=== PATIENT | male | born 1965 | race Caucasian/White ===

== ENCOUNTER 2024-04-11 09:38 | Emergency (ER) | payer OTHER, SELFPAY ==
--- NOTE | ~2024-04-11 | XR_ITS ---
EXAMINATION: XR chest 2V DATE: 04/11/2024 10:05 INDICATION: Cough. TECHNIQUE: Frontal and lateral views of the chest were obtained. COMPARISON: None. FINDINGS: There is no pneumonia, pleural effusion, or pneumothorax. The heart size is normal. IMPRESSION: 1. No acute cardiopulmonary disease. Reviewed, dictated and finalized at location A. [employer]
[2024-04-11 09:46] VITALS: BP 132/87; PULSE 84; RESP 20; TEMP 37.1; O2SAT 99
--- NOTE | 2024-04-11 10:10 | ED.URI ---
HPI - URI/Sore Throat General Chief Complaint: Upper Respiratory Infection Stated Complaint: Chest Congestion/Sinus Congestion/Cough History of Present Illness HPI Narrative: Patient presents with cough nasal congestion and runny nose for the past 3-4 days. Patient is worried about pneumonia states his grandchildren were does state treated for pneumonia. No shortness of breath no chest pain. Patient is taking DayQuil NyQuil [id number] for her symptoms. Related Data Home Medications ?Medication ?Instructions ?Recorded ?Confirmed ?Last Taken ?Type amlodipine 5 mg tablet 5 mg PO DAILY 04/11/24 Unknown History buspirone 5 mg tablet 5 mg PO BID 04/11/24 Unknown History fenofibrate 160 mg tablet mg 04/11/24 Unknown History Allergies Allergy/AdvReac Type Severity Reaction Status Date / Time No Known Allergies Allergy Verified 04/11/24 10:00 Review of Systems Review of Systems: CONSTITUTIONAL: Denies chills, or sweats. Reports fever and generalized body aches EYES: Denies visual changes, redness, or discharge. ENT: Denies otalgia. Reports nasal congestion runny nose and sore throat CARDIOVASCULAR: Denies chest pain, palpitations, or edema. RESPIRATORY: Denies dyspnea. Reports occasional cough GASTROINTESTINAL: Denies abdominal pain, nausea, vomiting, or diarrhea. GENITOURINARY: Denies dysuria or hematuria. SKIN: Denies rash or itching. MUSCULOSKELETAL: Denies back pain, joint pain, or myalgia. Reports generalized body aches NEUROLOGIC: Denies headache, numbness, or weakness. PSYCHIATRIC: Denies anxiety or depression. PMFSH Comments At time of signature, agree with nursing past medical, surgical, social and family history. There is no relevant family history pertinent to the presenting complaint Exam Narrative: The patient is a well-developed, well-nourished in no acute distress. SKIN: Skin is warm and dry without erythema, swelling or exudate. There is good turgor. No tenting. HEAD: Atraumatic. Normocephalic. No temporal or scalp tenderness. EYES: Moist and bright. Sclera and conjunctivae normal. No discharge. PERRLA. Extraocular motions intact. Gross visual acuity intact. EARS: Pinna is normal shape and contour. Clear external auditory canals. TM pearly walker with good cone of light, no erythema or suppuration. Bilateral cerumen noted no gross hearing deficit. NOSE: pink, moist mucosa with good air movement. Clear rhinorrhea without nasal flaring. Septum midline. Mouth: moist mucous membranes. THROAT; mild erythema noted to posterior oropharynx with moderate postnasal drainage. Without exudate or ulceration.. Uvula midline. Normal movement of soft palate. NECK: Supple and nontender with full range of motion without discomfort. No meningeal signs. LUNGS: Equal and bilateral breath sounds without wheezes, rales or rhonchi. CHEST: The chest wall is without retractions or use of accessory muscles. HEART: Has a regular rate and rhythm without murmur, gallops, click or rub. ABDOMEN: Soft, nontender with positive active bowel sounds. No rebound tenderness. EXTREMITIES: Without cyanosis, clubbing or edema. Equal 2+ distal pulses and 2 second capillary refill noted. NEUROLOGIC: alert, active, . The patient moves all extremities with normal muscle strength. Normal muscle tone is noted. Normal coordination is noted. NO focal neurological findings noted. Course Course Level of Care: Express Care Visit Vital Signs Vital signs: Vital Signs Temperature 37.1 C 04/11/24 09:46 Pulse Rate 84 04/11/24 09:46 Respiratory Rate 20 04/11/24 09:46 Blood Pressure 132/87 04/11/24 09:46 Pulse Oximetry 99 04/11/24 09:46 Oxygen Delivery Room Air 04/11/24 09:46 Temperature 37.1 C 04/11/24 09:46 Pulse Rate 84 04/11/24 09:46 Respiratory Rate 20 04/11/24 09:46 Blood Pressure 132/87 04/11/24 09:46 Pulse Oximetry 99 04/11/24 09:46 Oxygen Delivery Room Air 04/11/24 09:46 Please SHANELLE schedule a followup visit with your personal physician for further evaluation and treatment. Including recheck and discussion of your blood pressure. If your symptoms persist, change or worsen significantly before you can contact your personal physician then please, without delay, go to the emergency department for further evaluation MDM - URI/Sore Throat Imaging Data Radiologist's impression: No acute cardiopulmonary disease Discharge Plan Discharge Clinical Impression: Upper respiratory infection, Bronchitis Patient Disposition: Home, Self-Care Condition: Stable Additional Instructions: *Throw away your current toothbrush and begin using a new toothbrush in 48 hours in order to prevent re-infection. If anyone else's toothbrush is stored near yours, they should also throw away their current toothbrush and begin using a new one. *Sanitize all reusable water bottles. *Do not share items with others. *Wash your hands often. Supportive care/Soothing measures/Pain relief: *Avoid cigarette smoke (including secondhand smoke) *Avoid acidic foods and beverages *Eat a soft diet for the next 3-4 days *Salt water gargles may alleviate some of the throat discomfort. Most recipes call for ? to ? teaspoon of salt per 8 ounces (approximately 240 mL) of warm water. *You can take tylenol or ibuprofen per the package instructions for pain/fever. *Sipping cold or warm beverages (eg, tea with honey or lemon) *Eat cold or frozen desserts (eg, ice cream, popsicles) *Sucking on ice *Sucking on hard candy Viruses are everywhere and can spread like wildfire. Sx can last up to 3-4 weeks. Treatment is aimed toward your specific symptoms. You must treat your symptoms in order to feel better while the virus runs it's course. Increase fluids especially water. Do not share items with others. You can take Tylenol or ibuprofen per the package instructions for pain/fever. Wash your hands as often as possible. Purchase and begin using an over the counter antihistamine/decongestant combo such as Zyrtec D, Monica D, Claritin D as well as Flonase nasal spray per the package instructions. Salt water gargles may alleviate some of your throat discomfort. Go to the ER if your symptoms become worse of if ANY new symptoms develop Patient Language: Spanish Prescriptions: New fluticasone propionate [Flonase Allergy Relief] 50 mcg/actuation spray,suspension 2 spray NASAL BID Qty: 9.9 0RF Rx Instructions: administer into each nostril cetirizine [Zyrtec] 10 mg tablet 10 mg PO DAILY Qty: 30 0RF No Action amlodipine 5 mg tablet 5 mg PO DAILY buspirone 5 mg tablet 5 mg PO BID fenofibrate 160 mg tablet Follow-up/Referrals: Cholo,MIGUEL ANGEL Francis [Primary Care Provider] -
--- OUTSIDE RECORDS SUMMARY | 2024-04-18 08:33 | XMS_ITS | Encounter Summary ---
Author Organization [facility] Healthcare Address [address] [place] [address] Care Team Providers Care Echocardiography Radiology Technologist Name Role Phone Carlos Emmanuel Primary Care Provider [phone] Reason for Visit * Reason Comments Irregular Heart Beat Encounter Details Date Type Department Care Team (Late st Contact Info) Description 03/11/2024 10:59 PM GAS DERRICK OPERATOR - 03/12/2024 1:21 AM GAS DERRICK OPERATOR Emergency [facility] Emergency Department [address] [place] [address] Luiz Yeh MD [address] [place] [address] PVC's (premature ventricular contractions) (Primary Dx) Discharge Disposition: Discharge to home or self care Social History Tobacco Use Types Packs/Day Years Used Date Smoking Tobacco: Never Alcohol Use Standard Drinks/Week Comments Yes 0 (1 standard drink = 0.6 oz pur e alcohol) Personal Safety Answer Date Recorded Have you ever been in or are you currently in a harmful physical or emotional relationship or is someone making you feel afraid or unsafe? Denies 03/11/2024 Sex and Gender Information Value Date Recorded Sex Assigned at Not on file Legal Sex Male 2:29 AM GAS DERRICK OPERATOR Gender Identity Not on file Sexual Orientation Not on file documented as of this encounter Last Filed Vital Signs Vital Sign Reading Time Taken Comments Blood Pressure 134/87 03/12/2024 1:00 AM GAS DERRICK OPERATOR Pulse 72 03/12/2024 1:09 AM GAS DERRICK OPERATOR Temperature 36.8 ??C (98.2 ??F) 03/11/2024 11:[address] Respiratory Rate 14 03/12/2024 1:09 AM GAS DERRICK OPERATOR Oxygen Saturation 93% 03/12/2024 1:09 AM GAS DERRICK OPERATOR Inhaled Oxygen Concentration - - Weight 95.3 kg (210 lb) 03/11/2024 11:01 PM GAS DERRICK OPERATOR Height 175.3 cm (5' 9 ) 03/11/2024 11:01 PM GAS DERRICK OPERATOR Body Mass Index 31.01 03/11/2024 11:01 PM GAS DERRICK OPERATOR documented in this encounter Discharge Instructions * Discharge Instructions* Kushal Lu, [place] - 03/12/2024 1:06 AM GAS DERRICK OPERATOR Drink plenty of fluids. Avoid caffeine. Follow up with Dr. Medel and your primary care doctor. DERRICK OPERATOR DERRICK OPERATOR * Attachments The following attachments cannot be sent through Care Everywhere. * Premature Ventricular Contractions (Discharge Care) ([place]) documented in this encounter Medications at Time of Discharge amLODIPine (NORVASC) 5 mg tablet Take 1 tablet (5 mg total) by mouth daily 02/09/2024 busPIRone (BUSPAR) 5 mg tabletIndications :Generalized Anxiety Disorder Take 1 tablet (5 mg total) by mouth 2 (two) times a day ezetimibe (ZETIA) 10 mg tablet Take 1 tablet (10 mg total) by mouth daily 02/07/2024 fenofibrate (TRIGLIDE) 160 mg tablet Take 1 tablet (160 mg total) by mouth daily 02/09/2024 lisinopriL (PRINIVIL,ZESTRIL ) 20 mg tablet Take 1 tablet (20 mg total) by mouth daily 02/06/2024 naproxen (NAPROSYN) 500 mg tablet Take 1 tablet (500 mg total) by mouth 2 (two) times a day with meals. 20 tablet 03/09/2018 documented as of this encounter Discharge Disposition Disposition Code Departure Means Destination Comment s Discharge to home or self care documented in this encounter Consult Notes * Madeleine Moulton MD - 03/11/2024 11:30 PM CST Images from the original note were not included. [facility] Telestroke Consultation Note Patient Name: Brian Salazar Date of : 1965 Date of Service: 03/11/2024 Telestroke Documentation Consult Start Time: 2322 Name of Requesting Provider: Rao Video Used? : No Imaging Reviewed?: Yes Total Time Spent Coordinating Patient Care: 20 minutes (03/11/242328) Subjective HPI: Patient is a 59 y.o. male with HTN and HL presenting with palpitations, SOB, chest pain, and left cheek and bilateral hand (left>right) numbness. Last known well Date Last Known Well : 03/11/24 Time Last Known Well: 2244 (03/11/242316) PMH/Vascular Risk Factors: Hyperlipidemia and Hypertension (Not in a hospital admission) Current Facility-Administered Medications Medication Dose Route Frequency Provider Last Rate Last Admin aspirin chewable tablet 324 mg 324 mg oral Once Luiz Yeh MD Current Outpatient Medications Medication Sig Dispense Refill amLODIPine (NORVASC) 5 mg tablet Take 1 tablet (5 mg total) by mouth daily ezetimibe (ZETIA) 10 mg tablet Take 1 tablet (10 mg total) by mouth daily fenofibrate (TRIGLIDE) 160 mg tablet Take 1 tablet (160 mg total) by mouth daily lisinopriL (PRINIVIL,ZESTRIL) 20 mg tablet Take 1 tablet (20 mg total) by mouth daily busPIRone (BUSPAR) 5 mg tablet Take 1 tablet (5 mg total) by mouth 2 (two) times a day naproxen (NAPROSYN) 500 mg tablet Take 1 tablet (500 mg total) by mouth 2 (two) times a day with meals. 20 tablet 0 Objective Vitals: Patient Vital Signs for the past 24 hrs: BP Temp Temp src Pulse Resp SpO2 Height Weight 03/11/24 2304 161/99 36.8 ??C (98.2 ??F) Temporal 76 18 97 % -- -- 03/11/241 -- -- -- -- -- -- 175.3 cm (5' 9 ) 95.3 kg (210 lb) NIHSS: NIH Stroke Scale Interval: Baseline Level of Consciousness (1a.): Alert, keenly responsive LOC Questions (1b.): Answers both questions correctly LOC Commands (1c.): Performs both tasks correctly Best Gaze (2.): Normal Visual (3.): No visual loss Facial Palsy (4.): Normal symmetrical movements Motor Arm, Left (5a.): No drift Motor Arm, Right (5b.): No drift Motor Leg, Left (6a.): No drift Motor Leg, Right (6b.): No drift Limb Ataxia (7.): Absent Sensory (8.): Normal, no sensory loss Best Language (9.): No aphasia Dysarthria (10.): Normal Extinction and Inattention (11.) (Formerly Neglect): No abnormality Total: 0 (03/11/247) Other exam findings: Imaging Interpretation: Head CT shows no acute changes CT Head preliminary read for lytic treatment (Read to Treat)? N/A Labs: No results found for: GLUCOSE , PT , INR Hematology Lab History Latest Ref Rng & Units 03/11/2024 23:11 Labs - Hematology WBC 3.8 - 9.9 K/cumm 8.7 Total Hb, POC 13.0 - 17.5 g/dL 14.5 Hct 38.9 - 50.3 % 42.4 Plt 150 - 400 K/cumm 450 Neutrophil abs 1.5 - 6.5 K/cumm 4.0 Lymphocytes, abs 0.8 - 3.3 K/cumm 3.6 Other notable labs: Medical Decision Making: Recommendations Thrombolytic Recommended: No Patient was evaluated but ineligible for IV thrombolysis for the following reason(s): Unlikely acute stroke, more likely mimic, Mild, non-disabling stroke symptoms Thrombectomy Decision: No Thrombectomy Exclusion Criteria: Unlikely acute stroke, more likely mimic, NIHSS < 6 between 0-24 hours from last known normal (03/11/24 1200) Assessment/Plan: Mr. Salazar is a 59yo man with HTN, HL who comes in with palpitations, SOB, chest pain, and left cheek and left>right hand numbness. NIHSS 0. Head CT shows no acute changes. Suspect stroke mimic,but it would be reasonable to administer an aspirin and if symptoms persist and no other cause is found, obtain brain MRI. Total time spent coordinating care 20 minutes. Madeleine Moulton MD [employer] Telestroke Service For follow up questions please call the [facility] Transfer Center and ask to speak with the on-call physician for Telestroke DERRICK OPERATOR documented in this encounter ED Notes * Luiz Yeh MD - 03/11/2024 11:19 PM CST HPI Chief Complaint Patient presents with Irregular Heart Beat Patient started having palpitations 1.5 hours ago. Also having shortness of breath. He has been having some lower sternal chest pain and epigastric pain. He has had numbness to the left cheek for thelast 30 minutes. He feels disoriented. He has numbness to both hands, worse on the left. No nausea or vomiting. No headache. He is dizzy. Patient History: There are no active problems to display for this patient. Past Medical History: Diagnosis Date Hyperlipidemia Hypertension History reviewed. No pertinent surgical history. No family history on file. Social History Tobacco Use Smoking status: Never Smokeless tobacco: None Substance and Sexual Activity Alcohol use: Yes Drug use: No Sexual activity: None Social History Social History Narrative Not on file Review of Systems Review of Systems Constitutional: Negative for chills and fever. HENT: Negative for congestion, rhinorrhea and sore throat. Eyes: Negative for pain. Respiratory: Positive for shortness of breath. Negative for cough. Cardiovascular: Positive for chest pain and palpitations. Negative for leg swelling. Gastrointestinal: Negative for abdominal pain, diarrhea, nausea and vomiting. Genitourinary: Negative for difficulty urinating. Musculoskeletal: Negative for myalgias. Skin: Negative for rash. Neurological: Positive for dizziness and numbness. Negative for headaches. Psychiatric/Behavioral: Negative for behavioral problems. Physical Exam ED Triage Vitals Temp Pulse Resp BP SpO2 03/11/24230303/11/24230303/11/24230303/11/24230303/11/242303 36.8 ??C (98.2 ??F) 76 18 161/99 97 % Temp src Heart Rate Source Patient Position BP Location FiO2 (%) 03/11/242303 -- -- -- -- Temporal Height Height Method Weight Weight Method 03/11/24230003/11/24 23003/11/24 23003/11/242300 1.753 m (5' 9 ) Stated 95.3 kg (210 lb) Stated Physical Exam Constitutional: Appearance: He is well-developed. HENT: Head: Normocephalic and atraumatic. Nose: Nose normal. Eyes: Pupils: Pupils are equal, round, and reactive to light. Cardiovascular: Rate and Rhythm: Normal rate and regular rhythm. Heart sounds: Normal heart sounds. Pulmonary: Effort: Pulmonary effort is normal. Breath sounds: Normal breath sounds. Abdominal: General: Bowel sounds are normal. Palpations: Abdomen is soft. Musculoskeletal: General: Normal range of motion. Cervical back: Normal range of motion. Skin: General: Skin is warm and dry. Neurological: General: No focal deficit present. Mental Status: He is alert and oriented to person, place, and time. Sensory: No sensory deficit. Motor: No weakness. Labs Reviewed CBC WITH AUTO DIFFERENTIAL - Abnormal Result Value WBC 8.7 Hgb 14.5 Hct 42.4 Plt 450 (*) MPV 9.8 RBC 4.59 MCV 92.4 MCH 31.6 MCHC 34.2 RDW CV 12.2 RDW SD 41.4 NRBC abs 0.00 COMPREHENSIVE METABOLIC PANEL - Abnormal Sodium 137 Potassium, pl 3.7 Chloride 99 CO2 28 Anion gap 10 BUN 16 Creatinine 1.06 Glucose 113 Calcium 10.6 (*) Bilirubin, total 0.3 Protein, pl 7.8 Albumin 4.7 Alk phos 48 ALT 32 AST 22 DIFFERENTIAL AUTO - Abnormal Neutrophil abs 4.0 Imm gran abs 0.0 Lymphocyte abs 3.6 (*) Monocyte abs 0.9 (*) Eosinophil abs 0.1 Basophil abs 0.0 Neutrophil pct 46.2 Imm gran pct 0.2 Lymphocyte pct 40.9 Monocyte pct 10.8 Eosinophil pct 1.6 Basophil pct 0.3 TSH - Abnormal Thyroid Stimulating Hormone 5.03 (*) TROPONIN T HIGH-SENSITIVITY SERIES (BASELINE, 2HR, 4HR, 6HR) Trop T hs <6 LIPASE Lipase 29 MAGNESIUM Magnesium 2.0 LIPASE Lipase 30 D-DIMER, QUANTITATIVE D-Dimer <215 EGFR eGFR 82 TROPONIN T HIGH-SENSITIVITY 2-HOUR TROPONIN T HIGH-SENSITIVITY 4-HR TROPONIN T HIGH-SENSITIVITY 6-HOUR POCT GLUCOSE DEVICE Glucose, POC 106 XR Chest 1 Vw Portable (if patient condition/safety warrant portable) Final Result CT Stroke Head WO Contrast Final Result MDM NIH Score Interval: Other (Comment) Level of Consciousness (1a.): 0 LOC Questions (1b.): 0 LOC Commands (1c.): 0 Best Gaze (2.): 0 Visual (3.): 0 Facial Palsy (4.): 0 Motor Arm, Left (5a.): 0 Motor Arm, Right (5b.): 0 Motor Leg, Left (6a.): 0 Motor Leg, Right (6b.): 0 Limb Ataxia (7.): 0 Sensory (8.): 0 Best Language (9.): 0 Dysarthria (10.): 0 Extinction and Inattention (11.) (Formerly Neglect): 0 Total: 0 Medical Decision Making Patient presents with palpitations. Also having some numbness to the left face, both hands. Amount and/or Complexity of Data Reviewed Labs: ordered. Details: TSH 5.03. Calcium 10.6 Radiology: ordered. Details: Chest x-ray: Negative CT head: Negative ECG/medicine tests: ordered and independent interpretation performed. Details: EKG: Sinus rhythm, rate 87, PVC, nonspecific T-wave changes Discussion of management or test interpretation with external provider(s): Differential diagnosis: PVCs, stroke, TIA, cardiac. Patient had PVCs on the monitor. Cardiac workup negative. D-dimer negative. CT negative for stroke. Discussed with Dr. Moulton. Likely stroke mimic. Recommend aspirin. Follow up with Cardiology for event monitor. I did tell the patient to take a baby aspirin daily. Risk OTC drugs. ED Course as of 03/12/24 0133 Time: 03/11 6377 Comment: Dr. Moulton. No tPA. No CTA. By: Luiz Yeh MD Time: 03/12 131 Comment: Numbness is improved. By: Luiz Yeh MD Final diagnoses: PVC's (premature ventricular contractions) Luiz Yeh MD 03/12/24133 DERRICK OPERATOR * Cassidy Watkins RN - 03/11/2024 10:59 PM CST Pt c/o irregular heart beat x 1hr with SOB and pain to epigastric area. DERRICK OPERATOR documented in this encounter Miscellaneous Notes * ED Procedure Note - Luiz Yeh MD - 03/11/2024 11:23 PM CSTAssociated Order(s): ECG 12 lead Procedure ECG 12 lead Date/Time: 03/11/2024 11:23 PM Performed by: Luiz Yeh MD Authorized by: Luiz Yeh MD Rate: ECG rate: 87 ECG rate assessment: normal Rhythm: Rhythm: sinus rhythm Ectopy: Ectopy: PVCs T waves: T waves: non-specific Interpretation: Interpretation: abnormal Luiz Yeh MD 03/11/242322 DERRICK OPERATOR documented in this encounter Plan of Treatment Not on file documented as of this encounter Procedures Procedure Name Priority Date/Time Associated Diagnosis Comments XR CHEST 1 VIEW ED 03/11/2024 11:45 PM GAS DERRICK OPERATOR CT STROKE PROTOCOL WO CONTRAST Critical/Life-T hreatening 03/11/2024 11:26 PM GAS DERRICK OPERATOR POCT GLUCOSE DEVICE Routine 03/11/2024 1 1:19 PM GAS DERRICK OPERATOR TROPONIN T HIGH-SENSITIVITY SERIES (BASELINE, 2HR, 4HR, 6HR) STAT 03/11/2024 11:11 PM GAS DERRICK OPERATOR EGFR STAT 03/11/2024 11:11 PM GAS DERRICK OPERATOR DIFFERENTIAL AUTO STAT 03/11/2024 11: 11 PM GAS DERRICK OPERATOR CBC WITH AUTO DIFFERENTIAL STAT 03/11/2024 11:11 PM GAS DERRICK OPERATOR D-DIMER, QUANTITATIVE STAT 03/11/2024 11:11 PM GAS DERRICK OPERATOR TSH STAT 03/11/2024 11:11 PM GAS DERRICK OPERATOR MAGNESIUM Routine 03/11/2024 11:11 PM GAS DERRICK OPERATOR LIPASE STAT 03/11/2024 11:11 PM GAS DERRICK OPERATOR LIPASE STAT 03/11/2024 11:11 PM GAS DERRICK OPERATOR COMPREHENSIVE METABOLIC PANEL STAT 03/11/2024 11:11 PM GAS DERRICK OPERATOR ECG 12-LEAD STAT 03/11/2024 10:58 PM GAS DERRICK OPERATOR documented in this encounter Results * XR Chest 1 Vw Portable (if patient condition/safety warrant portable) (03/11/2024 11:45 PM GAS DERRICK OPERATOR) Anatomical Region Laterality Modality Body, Chest N/A Computed Radiogr aphy 03/11/2024 11:5 1 PM GAS DERRICK OPERATOR Narrative 03/11/2024 11:51 PM GAS DERRICK OPERATOR EXAM DESCRIPTION: XR CHEST 1 VIEW REASON FOR STUDY: chest pain ?? Pt c/o irregular heart beat x 1hr with SOB and pain to epigastric area. ?? Non smoker ??No surgery ??Hx of HTN ?? TECHNIQUE: ??Portable upright AP view of the chest. COMPARISON: None FINDINGS: LUNGS AND PLEURA: ??No focal opacity, large effusion, or pneumothorax identified. HEART/MEDIASTINUM: ??Trachea midline. ?? Cardiac silhouette normal in size. Mediastinal contours appear normal. BONES: ??Unremarkable. ?? CHEST WALL: ??Unremarkable. ?? UPPER ABDOMEN: ??Unremarkable. ?? IMPRESSION: No acute abnormality identified. ?? THIS IS AN ELECTRONICALLY VERIFIED FINAL REPORT 03/11/2024 11:51 PM - Electronically signed by ??Jose M Corona M.D. [place]: ROBE D: ??03/11/2024 11:51 PM T: ??03/11/2024 11:51 PM Report ID: [id number] Reading Location: ??[id number] Procedure Note Jose M Corona MD - 03/11/2024 EXAM DESCRIPTION: XR CHEST 1 VIEW REASON FOR STUDY: chest pain Pt c/o irregular heart beat x 1hr with SOB and pain to epigastric area.Non smoker No surgery Hx of HTN TECHNIQUE: Portable upright AP view of the chest. COMPARISON: None FINDINGS: LUNGS AND PLEURA: No focal opacity, large effusion, or pneumothorax identified. HEART/MEDIASTINUM: Trachea midline. Cardiac silhouette normal in size. Mediastinal contours appear normal. BONES: Unremarkable. CHEST WALL: Unremarkable. UPPER ABDOMEN: Unremarkable. IMPRESSION: No acute abnormality identified. THIS IS AN ELECTRONICALLY VERIFIED FINAL REPORT 03/11/2024 11:51 PM - Electronically signed by Jose M Corona M.D. [place]: ROBE Report ID: [id number] Reading Location: [id number] Luiz Yeh MD IMG XR PROCEDURES Final Resu lt * CT Stroke Head WO Contrast (03/11/2024 11:26 PM GAS DERRICK OPERATOR) Anatomical Region Laterality Modality Head N/A Computed Tomogra phy 03/11/2024 11:2 9 PM GAS DERRICK OPERATOR Narrative 03/11/2024 11:35 PM GAS DERRICK OPERATOR EXAM DESCRIPTION: CT STROKE HEAD WO CONTRAST REASON FOR STUDY: Palpitations 1.5 hours ago. Also having shortness of breath. He has been having some lower sternal chest pain and epigastric pain. He has had numbness to the left cheek for the last 30 minutes. He feels disoriented. He has numbness to both hands, worse ?? on the left. No nausea or vomiting. No headache. He is dizzy. ? TECHNIQUE: Axial images acquired through the brain without intravenous contrast. ??Images stored on PACS. ?? Automated exposure control was used as a dose optimization technique for this examination. COMPARISON: None FINDINGS: BRAIN: ??No mass, hemorrhage, or recent infarct. ?? Normal white matter. ?? Volume within normal limits for age. VASCULAR: ??No dense vessel or obvious aneurysm. EXTRA-AXIAL SPACES: ??No mass or fluid collection. ORBITS/GLOBES: Unremarkable. SOFT TISSUES: ??Unremarkable. ?? BONES/SINUSES: ??No fracture or lesion. ?? Paranasal sinuses and other skullbase airspaces are clear. IMPRESSION: No acute abnormality identified. ??Negative findings called. ?? THIS IS AN ELECTRONICALLY VERIFIED FINAL REPORT 03/11/2024 11:35 PM - Electronically signed by ??Jose M Corona M.D. [place]: ROBE D: ??03/11/2024 11:35 PM T: ??03/11/2024 11:35 PM Report ID: [id number] Reading Location: ??[id number] Procedure Note Jose M Corona MD - 03/11/2024 EXAM DESCRIPTION: CT STROKE HEAD WO CONTRAST REASON FOR STUDY: Palpitations 1.5 hours ago. Also having shortness ofbreath. He has been having some lower sternal chest pain and epigastric pain. Hehas had numbness to the left cheek for the last 30 minutes. He feelsdisoriented. He has numbness to both hands, worse on the left. No nausea or vomiting.No headache. He is dizzy. TECHNIQUE: Axial images acquired through the brain without intravenous contrast. Images stored on PACS. Automated exposure control was used asa dose optimization technique for this examination. COMPARISON: None FINDINGS: BRAIN: No mass, hemorrhage, or recent infarct. Normal white matter. Volume within normal limits for age. VASCULAR: No dense vessel or obvious aneurysm. EXTRA-AXIAL SPACES: No mass or fluid collection. ORBITS/GLOBES: Unremarkable. SOFT TISSUES: Unremarkable. BONES/SINUSES: No fracture or lesion. Paranasal sinuses and otherskullbase airspaces are clear. IMPRESSION: No acute abnormality identified. Negative findings called. THIS IS AN ELECTRONICALLY VERIFIED FINAL REPORT 03/11/2024 11:35 PM - Electronically signed by Jose M Corona M.D. [place]: ROBE Report ID: [id number] Reading Location: [id number] Luiz Yeh MD IMG CT PROCEDURES Final Resu lt * POCT glucose (03/11/2024 11:19 PM GAS DERRICK OPERATOR) Glucose, POC 106 70 - 199 mg/dL Blood 03/11/2024 11:1 9 PM GAS DERRICK OPERATOR 03/11/2024 11:19 PM GAS DERRICK OPERATOR us Luiz Yeh MD LAB POCT ORDERABLES - DEVICE Final Result [facility] ([place]) 1 [facility] Department [place] [address] * eGFR (03/11/2024 11:11 PM GAS DERRICK OPERATOR) eGFR 82 >=60 mL/min/1. 73 m2 Comment: Interpretive Data Reference Interval Normal ?>/= 90 mL/min/1.73m2 Mildly decreased* ? 60 - 89 mL/min/1.73m2 Mildly to moderately decreased ?45 - 59 mL/min/1.73m2 Moderately to severely decreased ??30 - 44 mL/min/1.73m2 Severely decreased ?15 - 29 mL/min/1.73m2 Kidney Failure ?< 15 ??mL/min/1.73m2 *Relative to young adult level Estimated glomerular filtration rate is determined by the 2020 CKD-EPI equation recommended by the National Kidney Foundation (A Unifying Approach to GFR Estimation: Recommendations of the NKF-ASK Task Force on Reassessing the Inclusion of Race in Diagnosing Kidney Disease, JASN 2020). The CKD-EPI equation should not be used for patients with unstable renal function and has not been validated in children and those over 70. Current interpretive data was last reviewed 2021. Blood 03/11/2024 11:1 1 PM GAS DERRICK OPERATOR 03/11/2024 11:13 PM GAS DERRICK OPERATOR Luiz Yeh MD LAB BLOOD ORDERABLES Final R esult Performing Organization Address [facility] Co de Phone Number [facility] ([place]) [address] [place] [address] [employer] [place] [address] * D-dimer, quantitative (03/11/2024 11:11 PM GAS DERRICK OPERATOR) D-Dimer <215 <=499 ng/mL FEU [facility] ([place]) Comment: Interpretive data FDA approved the D-dimer, in conjunction with a low or moderate pretest probability score, to exclude venous thromboembolic events (VTE) (PE and DVT) in outpatients when the D-dimer result is < 500 ng/ml FEU. ?? Evidence supports using an age-adjusted D-dimer cut-off for outpatients older than 50 (age x 10) to improve specificity without sacrificing sensitivity. Example: age 68, VTE cut-off 680 ng/ml FEU. References; Marissa HT et al. Brit Med J. 2013;346:f2492. Min et al. Annals Int Med. 2015;163:701-11. Current interpretive data was last revised on 2019. Blood 03/11/2024 11:1 1 PM GAS DERRICK OPERATOR 03/11/2024 11:27 PM GAS DERRICK OPERATOR Luiz Yeh MD LAB BLOOD ORDERABLES Final R esult Performing Organization Address [facility] Co de Phone Number [facility] ([place]) 1 [facility] [place] [address] * (ABNORMAL) TSH (03/11/2024 11:11 PM GAS DERRICK OPERATOR) Thyroid Stimulating Hormone 5.03(H) 0.30 - 4.20 mcIUnit/mL Blood 03/11/2024 11:1 1 PM GAS DERRICK OPERATOR 03/11/2024 11:27 PM GAS DERRICK OPERATOR Luiz Yeh MD LAB BLOOD ORDERABLES Final R esult Performing Organization Address [facility] Co de Phone Number [facility] ([place]) [address] [facility] [place] [address] * Lipase (03/11/2024 11:11 PM GAS DERRICK OPERATOR) Lipase 30 10 - 99 Units/L Blood 03/11/2024 11:1 1 PM GAS DERRICK OPERATOR 03/11/2024 11:27 PM GAS DERRICK OPERATOR Luiz Yeh MD LAB BLOOD ORDERABLES Final R esult Performing Organization Address [facility] de Phone Number [facility] ([place]) [address] [facility] [place] [address] * Magnesium (03/11/2024 11:11 PM GAS DERRICK OPERATOR) Magnesium 2.0 1.4 - 2.5 mg/dL Blood 03/11/2024 11:1 1 PM GAS DERRICK OPERATOR 03/11/2024 11:27 PM GAS DERRICK OPERATOR Luiz Yeh MD LAB BLOOD ORDERABLES Final R esult Performing Organization Address [facility] de Phone Number [facility] ([place]) [address] [facility] [place] [place] [address] * (ABNORMAL) Differential, auto (03/11/2024 11:11 PM GAS DERRICK OPERATOR) Neutrophil abs 4.0 1.5 - 6.5 K/cumm Imm gran abs 0.0 0.0 - 0.1 K/cumm [facility] ([place]) Lymphocyte abs 3.6(H) 0.8 - 3.3 K/cumm [facility] ([place]) Monocyte abs 0.9(H) 0.2 - 0.8 K/cumm [facility] ([place]) Eosinophil abs 0.1 0.0 - 0.5 K/cumm [facility] ([place]) Basophil abs 0.0 0.0 - 0.1 K/cumm [facility] ([place]) Neutrophil pct 46.2 % [facility] ([place]) Comment: Interpretive Data Percent cell count reference ranges are not reported, since discordance with absolute values may lead to misinterpretation of CBC data. Current Interpretive Data was last revised on 2017. Imm gran pct 0.2 % [facility] ([place]) Comment: Interpretive Data Percent cell count reference ranges are not reported, since discordance with absolute values may lead to misinterpretation of CBC data. Current Interpretive Data was last revised on 2017. Lymphocyte pct 40.9 % [facility] ([place]) Comment: Interpretive Data Percent cell count reference ranges are not reported, since discordance with absolute values may lead to misinterpretation of CBC data. Current Interpretive Data was last revised on 2017. Monocyte pct 10.8 % [facility] ([place]) Comment: Interpretive Data Percent cell count reference ranges are not reported, since discordance with absolute values may lead to misinterpretation of CBC data. Current Interpretive Data was last revised on 2017. Eosinophil pct 1.6 % [facility] ([place]) Comment: Interpretive Data Percent cell count reference ranges are not reported, since discordance with absolute values may lead to misinterpretation of CBC data. Current Interpretive Data was last revised on 2017. Basophil pct 0.3 % [facility] ([place]) Comment: Interpretive Data Percent cell count reference ranges are not reported, since discordance with absolute values may lead to misinterpretation of CBC data. Current Interpretive Data was last revised on 2017. Blood 03/11/2024 11:1 1 PM GAS DERRICK OPERATOR 03/11/2024 11:13 PM GAS DERRICK OPERATOR us Luiz Yeh MD LAB BLOOD ORDERABLES Final R esult [facility] ([place]) 1 [facility] Department [place] [employer] [place] [address] * Lipase (03/11/2024 11:11 PM GAS DERRICK OPERATOR) [facility] Lipase 29 10 - 99 Units/L Blood 03/11/2024 11:1 1 PM GAS DERRICK OPERATOR 03/11/2024 11:13 PM GAS DERRICK OPERATOR Luiz Yeh MD LAB BLOOD ORDERABLES Final R esult Performing Organization Address City/[facility]/ZIP Co de Phone Number DONI [facility] ([place]) 1 [facility] [place] [address] * Troponin T high-sensitivity series (baseline, 2hr, 4hr, 6hr) (03/11/2024 11:11 PM GAS DERRICK OPERATOR) [facility] Trop T hs <6 <=22 ng/L Comment: Interpretive Data For further hscTnT resources including the diagnostic algorithm and an aid in interpretation, copy and paste this link: https://nrl.testcatalog.org/show/hsTrop Current Interpretive Data last revised 2020. Blood 03/11/2024 11:1 1 PM GAS DERRICK OPERATOR 03/11/2024 11:13 PM GAS DERRICK OPERATOR Luiz Yeh MD LAB BLOOD ORDERABLES Edited Result - Final Performing Organization Address [facility] Co de Phone Number DONI [facility] ([place]) 1 [place] [address] * (ABNORMAL) Comprehensive metabolic panel (03/11/2024 11:11 PM GAS DERRICK OPERATOR) [facility] Sodium 137 135 - 145 mmol/L Potassium, pl 3.7 3.3 - 4.9 mmol/L [facility] ([place]) Chloride 99 97 - 110 mmol/L [facility] ([place]) CO2 28 22 - 32 mmol/L [facility] [place] Anion gap 10 2 - 15 mmol/L [facility] ([place]) BUN 16 6 - 25 mg/dL [facility] ([place]) Creatinine 1.06 0.80 - 1.30 mg/dL [facility] ([place]) Glucose 113 70 - 199 mg/dL [facility] ([place]) Comment: Interpretive Data Fasting glucose >/= 126 mg/dl is diagnostic for diabetes. ?? Fasting is defined as no caloric intake for at least 8 hours. Fasting glucose between 100 mg/dl to 125 mg/dl is diagnostic of prediabetes. In a patient with classic symptoms of hyperglycemia or hyperglycemic crisis, a random glucose >/= 200 mg/dl is diagnostic for diabetes. In the absence of unequivocal hyperglycemia, results should be confirmed by repeat testing. The classification and Diagnosis of Diabetes Diabetes Care 2021; 46: S19-S40. Current interpretive data was last revised 2022. Calcium 10.6(H) 8.5 - 10.3 mg/dL [facility] ([place]) Bilirubin, total 0.3 0.1 - 1.2 mg/dL [facility] ([place]) Protein, pl 7.8 6.5 - 8.5 g/dL [facility] ([place]) Albumin 4.7 3.5 - 5.0 g/dL [facility] ([place]) Alk phos 48 40 - 130 Units/L [facility] ([place]) ALT 32 7 - 55 Units/L [facility] [place]) AST 22 10 - 50 Units/L [facility] [place]) Blood 03/11/2024 11:1 1 PM GAS DERRICK OPERATOR 03/11/2024 11:13 PM GAS DERRICK OPERATOR us Luiz Yeh MD LAB BLOOD ORDERABLES Final R esult [facility] ([place]) 1 [facility] Department [place] [address] * (ABNORMAL) CBC with auto differential (03/11/2024 11:11 PM GAS DERRICK OPERATOR) WBC 8.7 3.8 - 9.9 K/cumm Hgb 14.5 13.0 - 17.5 g/dL [facility] ([place]) Hct 42.4 38.9 - 50.3 % [facility] [place]) Plt 450(H) 150 - 400 K/cumm [facility] [place]) MPV 9.8 9.1 - 12.3 fL [facility] [place]) RBC 4.59 4.30 - 5.80 M/cumm [facility] ([place]) MCV 92.4 81.3 - 96.4 fL [facility] ([place]) MCH 31.6 27.1 - 33.3 pg [facility] ([place]) MCHC 34.2 32.3 - 35.7 g/dL [facility] ([place]) RDW CV 12.2 11.1 - 14.9 % [facility] [place]) RDW SD 41.4 35.7 - 48.1 fL [facility] ([place]) NRBC abs 0.00 0.00 - 0.01 K/cumm [facility] ([place]) Blood (Blood, Venous) 03/11/2024 11:11 PM GAS DERRICK OPERATOR 03/11/2024 11:13 PM GAS DERRICK OPERATOR Luiz Yeh MD LAB BLOOD ORDERABLES Final R esult Performing Organization Address City/[facility] Co de Phone Number [facility] ([place]) 1 [facility] Department [place] [address] * ECG 12 lead (03/11/2024 10:58 PM GAS DERRICK OPERATOR) 03/11/2024 10:5 8 PM GAS DERRICK OPERATOR Narrative [facility] Dibspace - 03/12/2024 8:25 AM GAS DERRICK OPERATOR Vent Rate: 87 bpm RR Interval: 682 msec HI Interval: 175 msec QRS Duration: 91 msec QT Interval: 367 msec QTC Interval: 412 msec P-R-T [place]: 35 - 72 - 22 degrees IMPRESSION: SINUS RHYTHM WITH FREQUENT VENTRICULAR PREMATURE COMPLEXES NONSPECIFIC T-WAVE ABNORMALITY ABNORMAL RHYTHM ECG Electronically Signed By: Barney Ya MD [facility] Luiz Yeh MD ECG ORDERABLES Final Result Performing Organization Address [facility] Co de Phone Number [facility] [employer] [facility] documented in this encounter Visit Diagnoses Diagnosis PVC's (premature ventricular contractions)- Primary Other premature beats documented in this encounter Administered Medications Inactive Administered Medications - up to 3 most recent administrations Medication Order MAR Action Action Date Dose Rate Site aspirin chewable tablet 324 mg 324 mg, oral, Once, On [place] 03/11/24 at 2306, For 1 dose, Indications: Chest PainIndications:Chest Pain Given 03/11/2024 11:50 PM GAS DERRICK OPERATOR 324 mg documented in this encounter Historical Medications * This list may reflect changes made after this encounter. busPIRone (BUSPAR) 5 mg tabletIndications :Generalized Anxiety Disorder Take 1 tablet (5 mg total) by mouth 2 (two) times a day lisinopriL (PRINIVIL,ZESTRIL ) 20 mg tablet Take 1 tablet (20 mg total) by mouth daily 02/06/2024 ezetimibe (ZETIA) 10 mg tablet Take 1 tablet (10 mg total) by mouth daily 02/07/2024 fenofibrate (TRIGLIDE) 160 mg tablet Take 1 tablet (160 mg total) by mouth daily 02/09/2024 amLODIPine (NORVASC) 5 mg tablet Take 1 tablet (5 mg total) by mouth daily 02/09/2024 added in this encounter Active and Recently Administered Medications Times are shown in GAS DERRICK OPERATOR. Scheduled Medication Order 03/10/2024 03/11/2024 03/12/2024 aspirin chewable tablet 324 mg (COMPLETED) 324 mg, oral, Once, On Olive 03/11/24 at 2306, For 1 dose, Indications: Chest Pain 2350 (Given - Provider: Camilo Lu RN) documented in this encounter Orders Nursing Count Last Ordered Date First Orde red Date CONTINUOUS PULSE OXIMETRY 1 03/11/2024 MISCELLANEOUS NURSING CARE ORDER (SPECIFY) 2 03/11/2024 IV Count Last Ordered Date First Orde red Date SALINE LOCK IV 1 03/11/2024 documented in this encounter Care Teams Echocardiography Radiology Technologist Relationship Specialty Start Date End Date Carlos Emmanuel PA [address] [place] [address] PCP - General 03/09/18 documented as of this encounter
--- OUTSIDE RECORDS SUMMARY | 2024-04-18 08:33 | XMS_ITS | Encounter Summary ---
Author Organization [facility] Address [address] [facility] [address] [place] [id number] Care Team Providers Care Payable Manager Name Role Phone Carlos Emmanuel Primary Care Provider Reason for Visit * Reason Comments Pain Encounter Details Date Type Department Care Team (Late st Contact Info) Description 03/18/2018 8:50 AM PEST CONTROL SPECIALIST Office Visit [facility] [address] [place] [address] Kj Campuzano MD [address] [address] Sprain of medial collateral ligament of left knee, initial encounter (Primary Dx) Social History Tobacco Use Types Packs/Day Years Used Date Smoking Tobacco: Never Alcohol Use Standard Drinks/Week Comments Yes 0 (1 standard drink = 0.6 oz pur e alcohol) Sex and Gender Information Value Date Recorded Sex Assigned at Not on file Legal Sex Male 2:29 AM PEST CONTROL SPECIALIST Gender Identity Not on file Sexual Orientation Not on file documented as of this encounter Last Filed Vital Signs Vital Sign Reading Time Taken Comments Blood Pressure 140/88 03/18/2018 9:19 AM PEST CONTROL SPECIALIST Pulse 76 03/18/2018 9:19 AM PEST CONTROL SPECIALIST Temperature - - Respiratory Rate - - Oxygen Saturation - - Inhaled Oxygen Concentration - - Weight 99.8 kg (220 lb) 03/18/2018 9:19 AM PEST CONTROL SPECIALIST Height 175.3 cm (5' 9 ) 03/18/2018 9:19 AM PEST CONTROL SPECIALIST Body Mass Index 32.49 03/18/2018 9:19 AM PEST CONTROL SPECIALIST documented in this encounter Progress Notes * Kj Campuzano MD - 03/18/2018 8:50 AM CST This 53-year-old male returns today for evaluation of left knee pain. He was injured in the work place on 03/06/2018 when his foot slipped and he struck it doorjamb. He complains of medial joint linepain and initially had some popping and near giving way but states that he is actually getting better with the use of a knee immobilizer as well as ice/heat. He states that he can trust his knee at this point in that his pain is at a 3 or 4 on a scale of 0-10. Examination confirms healthy-appearing 53-year-old with positive findings left knee with there is tenderness to medial joint line to direct palpation but Walker's Apley's grind tests are equivocal.Gurinder's, pivot shift drawer tests are negative. Overall range of motion is 90% normal. There is amild antalgic gait pattern. There is no effusion. Peripheral neurovascular status is preserved. X-rays are within normal limits. Diagnosis-left knee sprain-improving. Plan-knee sleeve/OTC NSAIDs. Return to work on Friday without restrictions. Return to this office p.r.n.. CONTROL SPECIALIST documented in this encounter Plan of Treatment Not on file documented as of this encounter Visit Diagnoses Diagnosis Sprain of medial collateral ligament of left knee, initial encounter- Primary documented in this encounter Care Teams Payable Manager Relationship Specialty Start Date End Date Carlos Emmanuel PA [address] [place] [address] PCP - General 03/09/18 documented as of this encounter
--- OUTSIDE RECORDS SUMMARY | 2024-04-18 08:33 | XMS_ITS | Clinical Summary ---
Author Organization [facility] Address [address] [place] [address] Care Team Providers Care Professor In Family Studies Name Role Phone Carlos Emmanuel Primary Care Provider [phone] Allergies No known active allergies Medications naproxen (NAPROSYN) 500 mg tablet Take 1 tablet (500 mg total) by mouth 2 (two) times a day with meals. 20 tablet 8 Active Additional Information Patient not taking.Reported on 04/08/2024 amLODIPine (NORVASC) 5 mg tablet Take 1 tablet (5 mg total) by mouth daily 4 Active fenofibrate (TRIGLIDE) 160 mg tablet Take 1 tablet (160 mg total) by mouth daily 4 Active ezetimibe (ZETIA) 10 mg tablet Take 1 tablet (10 mg total) by mouth daily 4 Active lisinopriL (PRINIVIL,ZESTR IL) 20 mg tablet Take 1 tablet (20 mg total) by mouth daily 4 Active busPIRone (BUSPAR) 5 mg tabletIndicatio ns:Generalized Anxiety Disorder Take 1 tablet (5 mg total) by mouth 2 (two) times a day Active Active Problems Problem Noted Date Diagnosed Date Palpitations 04/06/2024 Overview (04/06/2024): Patient presented with palpitations to the emergency room on 11 March 2022. Workup revealed PVCs. Assessment & Plan (04/08/2024 3:24 PM PROGRAM ANALYST): Patient was seen in the emergency room in late March 10, 2024 because he felt some irregular heartbeats. Workup in the emergency room showed 3 PVCs on a 12 lead EKG--I showed him the findings on the computer. Blood test only showed a minimally elevated TSH and he has no symptoms of a low thyroid hormone. We discussed that he may not need thyroid replacement therapy. I checked his pulse for a total of 2 minutes. Very minimal premature beats noted. We discussed several things that could be causing this: alcohol, nicotine and caffeine/high energy drinks. He admits to drinking a cup of coffee a day. Since he has never had a head baggage porter in the past, I will order a 30 day head baggage porter see how much PVCs he really has. He does not have any chest pain or shortness of breath with activities, so I do not think a stress test or cardiac catheterization is needed. However, an echocardiogram could be useful and he is agreeable to get it done. Since he has done well over the past month with not much palpitations, I will not start him on any beta-cady, etc. Encounters Date Type Department Care Team Description 04/08/2024 3:15 PM PROGRAM ANALYST Office Visit [facility] Jointer Operator at [address] [place] [id number] Hawk Medel MD Palpitations (Primary Dx) 03/11/2024 10:59 PM PROGRAM ANALYST - 03/12/2024 1:21 AM [facility] Emergency [facility] Emergency Department [address] [place] [address] Luiz Yeh MD PVC's (premature ventricular contractions) (Primary Dx) Discharge Disposition: Discharge to home or self care from Last 3 Months Medical History Medical History Date Comments Hypertension Hyperlipidemia Social History Tobacco Use Types Packs/Day Years [...] on file Legal Sex Male 2:29 AM PROGRAM ANALYST Gender Identity Not on file Sexual Orientation Not on file Obstetrics History Last Filed Vital Signs Vital Sign Reading Time Taken Comments Blood Pressure 149/83 04/08/2024 3:01 PM PROGRAM ANALYST Pulse 71 04/08/2024 3:01 PM PROGRAM ANALYST Temperature 36.8 ??C (98.2 ??F) 03/11/2024 1 1:04 PM PROGRAM ANALYST Respiratory Rate 14 03/12/2024 1:09 AM PROGRAM ANALYST Oxygen Saturation 93% 03/12/2024 1:09 AM PROGRAM ANALYST Inhaled Oxygen Concentration - - Weight 98.3 kg (216 lb 11.2 oz) 04/08/2024 3:01 PM PROGRAM ANALYST Height 175.3 cm (5' 9 ) 04/08/2024 3:01 PM PROGRAM ANALYST Body Mass Index 32 04/08/2024 3:01 PM PROGRAM ANALYST Plan of Treatment Health Maintenance Due Date Last Done Comments Colon Cancer Screening-Colonoscopy 1967 Depression Screening 1967 Hepatitis C Screening 1967 Prostate Cancer Screening-PSA 1967 DTaP/Tdap/Td Vaccine (1 - Tdap) 1978 Hepatitis B Screening 1985 Regular Well Visit/Exam 18-64 1985 Zoster Vaccine (1 of 2) 2017 Covid-19 Vaccine ( season) 2023 02/20/2022, 04/16/2021, 08/09/2020, Additional history exists Influenza Vaccine (#1) 2023 Pneumococcal vaccine <65 Aged Out No longer eligible based on patient's age to complete this topic Procedures Procedure Name Priority Date/Time Associated Diagnosis Comments XR CHEST 1 VIEW ED 03/11/2024 11:[address] STROKE PROTOCOL WO CONTRAST Critical/Life-T hreatening 03/11/2024 11:26 PM PROGRAM ANALYST POCT GLUCOSE DEVICE Routine 03/11/2024 1 1:19 PM PROGRAM ANALYST EGFR STAT 03/11/2024 11:11 PM PROGRAM ANALYST D-DIMER, QUANTITATIVE STAT 03/11/2024 11:11 PM PROGRAM ANALYST TSH STAT 03/11/2024 11:11 PM PROGRAM ANALYST LIPASE STAT 03/11/2024 11:11 PM PROGRAM ANALYST MAGNESIUM Routine 03/11/2024 11:11 PM PROGRAM ANALYST DIFFERENTIAL AUTO STAT 03/11/2024 11: 11 PM PROGRAM ANALYST LIPASE STAT 03/11/2024 11:11 PM PROGRAM ANALYST TROPONIN T HIGH-SENSITIVITY SERIES (BASELINE, 2HR, 4HR, 6HR) STAT 03/11/2024 11:11 PM PROGRAM ANALYST COMPREHENSIVE METABOLIC PANEL STAT 03/11/2024 11:11 PM PROGRAM ANALYST CBC WITH AUTO DIFFERENTIAL STAT 03/11/2024 11:11 PM PROGRAM ANALYST ECG 12-LEAD STAT 03/11/2024 10:58 PM PROGRAM ANALYST from Last 3 Months Results * XR Chest 1 Vw Portable (if patient condition/safety warrant portable) (03/11/2024 11:45 PM PROGRAM ANALYST) Anatomical Region Laterality Modality Body, Chest N/A Computed Radiogr aphy 03/11/2024 11:5 1 PM PROGRAM ANALYST Narrative 03/11/2024 11:51 PM PROGRAM ANALYST EXAM DESCRIPTION: XR CHEST 1 VIEW REASON [...] PM T: ??03/11/2024 11:51 PM Report ID: [id number] Reading Location: [id number] Procedure Note Jose M Corona MD - [...] M Corona M.D. AR: ROBE Report ID: [id number] Reading Location: [id number] Luiz Yeh MD IMG XR PROCEDURES Final Resu lt * CT Stroke Head WO Contrast (03/11/2024 11:26 PM PROGRAM ANALYST) Anatomical Region Laterality Modality Head N/A Computed Tomogra phy 03/11/2024 11:2 9 PM PROGRAM ANALYST Narrative 03/11/2024 11:35 PM PROGRAM ANALYST EXAM DESCRIPTION: CT STROKE HEAD WO CONTRAST [...] PM T: ??03/11/2024 11:35 PM Report ID: [id number] Reading Location: ??[id number] Procedure Note Jose M Corona MD - [...] M Corona M.D. AR: ROBE Report ID: [id number] Reading Location: [id number] Luiz Yeh MD IMG CT PROCEDURES Final Resu lt * POCT glucose (03/11/2024 11:19 PM PROGRAM ANALYST) [facility] Glucose, POC 106 70 - 199 mg/dL Blood 03/11/2024 11:1 9 PM PROGRAM ANALYST 03/11/2024 11:19 PM PROGRAM ANALYST Luiz Yeh MD LAB POCT ORDERABLES - DEVICE Final Result Performing Organization Address City/[facility]/ZIP Co de Phone Number DONI [facility]ANS[facility] ([place]) 1 [facility] [employer] [place] [address] * Troponin T high-sensitivity series (baseline, 2hr, 4hr, 6hr) (03/11/2024 11:11 PM PROGRAM ANALYST) [facility] Trop T hs <6 <=22 ng/L Comment: Interpretive Data For further hscTnT resources including the diagnostic algorithm and an aid in interpretation, copy and paste this link: https://nrl.testcatalog.org/show/hsTrop Current Interpretive Data last revised 2020. Blood 03/11/2024 11:1 1 PM PROGRAM ANALYST 03/11/2024 11:13 PM PROGRAM ANALYST Luiz Yeh MD LAB BLOOD ORDERABLES Edited Result - Final [facility] ([place]) 1 [facility] [employer] [place] [address] * eGFR (03/11/2024 11:11 PM PROGRAM ANALYST) [facility] eGFR 82 >=60 mL/min/1. 73 m2 Comment: [...] reviewed 2021. Blood 03/11/2024 11:1 1 PM PROGRAM ANALYST 03/11/2024 11:13 PM PROGRAM ANALYST us Luiz Yeh MD LAB BLOOD ORDERABLES Final R esult [facility] ([place]) 1 [facility] [place] [address] * (ABNORMAL) Differential, auto (03/11/2024 11:11 PM PROGRAM ANALYST) Neutrophil abs 4.0 1.5 - 6.5 K/cumm Imm gran abs 0.0 0.0 - 0.1 K/cumm [facility] ([place]) Lymphocyte abs 3.6(H) 0.8 - 3.3 K/cumm [facility] ([place]) Monocyte abs 0.9(H) 0.2 - 0.8 K/cumm [...] on 2017. Blood 03/11/2024 11:1 1 PM PROGRAM ANALYST 03/11/2024 11:13 PM PROGRAM ANALYST us Luiz Yeh MD LAB BLOOD ORDERABLES Final R esult [facility] ([place]) [address] [facility] [place] [address] * (ABNORMAL) CBC with auto differential (03/11/2024 11:11 PM PROGRAM ANALYST) WBC 8.7 3.8 - 9.9 K/cumm Hgb 14.5 13.0 - 17.5 g/dL [facility] ([place]) Hct 42.4 38.9 - 50.3 % [facility] ([place]) Plt 450(H) 150 - 400 K/cumm [facility] ([place]) MPV 9.8 9.1 - 12.3 fL [facility] ([place]) RBC 4.59 4.30 - 5.80 M/cumm [facility] ([place]) MCV 92.4 81.3 - 96.4 fL [facility] ([place]) MCH 31.6 27.1 - 33.3 pg [facility] ([place]) MCHC 34.2 32.3 - 35.7 g/dL [facility] ([place]) RDW CV 12.2 11.1 - 14.9 % [facility] ([place]) RDW SD 41.4 35.7 - 48.1 fL [facility] NRBC abs 0.00 0.00 - 0.01 K/cumm [facility] Blood (Blood, Venous) 03/11/2024 11:11 PM PROGRAM ANALYST 03/11/2024 11:13 PM PROGRAM ANALYST Luiz Yeh MD LAB BLOOD ORDERABLES Final R esult DONI [facility] ([place]) 1 [facility] [place] [address] * D-dimer, quantitative (03/11/2024 11:11 PM PROGRAM ANALYST) D-Dimer <215 <=499 ng/mL FEU [facility] ([place]) Comment: Interpretive data FDA approved the D-dimer, [...] 68, VTE cut-off 680 ng/ml FEU. References; Schconcha HT et al. Brit Med J. 2013;346:f2492. Min et al. Annals Int Med. 2015;163:701-11. Current interpretive data was last revised on 2019. Blood 03/11/2024 11:1 1 PM PROGRAM ANALYST 03/11/2024 11:27 PM PROGRAM ANALYST Luiz Yeh MD LAB BLOOD ORDERABLES Final R esult [facility] ([place]) 1 [facility] [place] [employer] [place] [address] * (ABNORMAL) TSH (03/11/2024 11:11 PM PROGRAM ANALYST) Thyroid Stimulating Hormone 5.03(H) 0.30 - 4.20 mcIUnit/mL Blood 03/11/2024 11:1 1 PM PROGRAM ANALYST 03/11/2024 11:27 PM PROGRAM ANALYST Luiz Yeh MD LAB BLOOD ORDERABLES Final R esult Performing Organization Address City/[facility] Co de Phone Number DONI HANSEN ([place]) 1 [facility] [employer] [place] [address] * Magnesium (03/11/2024 11:11 PM PROGRAM ANALYST) Magnesium 2.0 1.4 - 2.5 mg/dL Blood 03/11/2024 11:1 1 PM PROGRAM ANALYST 03/11/2024 11:27 PM PROGRAM ANALYST Luiz Yeh MD LAB BLOOD ORDERABLES Final R esult Performing Organization Address City/[facility] Co de Phone Number DONI HANSEN ([place]) 1 [facility] [employer] [place] [address] * Lipase (03/11/2024 11:11 PM PROGRAM ANALYST) Lipase 30 10 - 99 Units/L Blood 03/11/2024 11:1 1 PM PROGRAM ANALYST 03/11/2024 11:27 PM PROGRAM ANALYST Luiz Yeh MD LAB BLOOD ORDERABLES Final R esult Performing Organization Address City/State/[facility] Co de Phone Number DONI [facility] ([place]) 1 [facility] [place] [address] * Lipase (03/11/2024 11:11 PM PROGRAM ANALYST) Lipase 29 10 - 99 Units/L Blood 03/11/2024 11:1 1 PM PROGRAM ANALYST 03/11/2024 11:13 PM PROGRAM ANALYST Luiz Yeh MD LAB BLOOD ORDERABLES Final R esult Performing Organization Address [facility] de Phone Number DONI [facility] ([place]) [address] [place] [address] * (ABNORMAL) Comprehensive metabolic panel (03/11/2024 11:11 PM PROGRAM ANALYST) Sodium 137 135 - 145 mmol/L Potassium, pl 3.7 3.3 - 4.9 mmol/L [facility] ([place]) Chloride 99 97 - 110 mmol/L [facility] CO2 28 22 - 32 mmol/L [facility] ([place]) Anion gap 10 2 - 15 mmol/L [facility] ([place]) BUN 16 6 - 25 mg/dL [facility] ([place]) Creatinine 1.06 0.80 - 1.30 mg/dL [facility] ([place]) Glucose 113 70 - 199 mg/dL [facility] ([place]) Comment: Interpretive Data Fasting glucose [...] [facility] ([place]) Blood 03/11/2024 11:1 1 PM PROGRAM ANALYST 03/11/2024 11:13 PM PROGRAM ANALYST Luiz Yeh MD LAB BLOOD ORDERABLES Final R esult Performing Organization Address [facility] de Phone Number [facility] ([place]) [address] [place] [address] Department of Laboratories [place] [phone] * ECG 12 lead (03/11/2024 10:58 PM PROGRAM ANALYST) 03/11/2024 10:5 8 PM PROGRAM ANALYST Narrative [facility] - 03/12/2024 8:25 AM PROGRAM ANALYST Vent Rate: 87 bpm RR Interval: 682 msec MT Interval: 175 msec QRS Duration: 91 msec QT Interval: 367 msec QTC Interval: 412 msec P-R-T [place]: 35 - 72 - 22 degrees IMPRESSION: SINUS RHYTHM WITH FREQUENT VENTRICULAR PREMATURE COMPLEXES NONSPECIFIC T-WAVE ABNORMALITY ABNORMAL RHYTHM ECG Electronically Signed By: Barney Ya MD [facility] Luiz Yeh MD ECG ORDERABLES Final Result Performing Organization Address [facility] de Phone Number [facility] [employer] [facility] from Last 3 Months Insurance [facility] CIG[employer] WORK[employer] COMPENSATION GENERIC Care Teams Professor In Family Studies Relationship Specialty Start Date End Date Carlos Emmanuel PA [address] [place] [address] PCP - General 03/09/18
--- OUTSIDE RECORDS SUMMARY | 2024-04-18 08:33 | XMS_ITS | Encounter Summary ---
Author Organization [facility] Healthcare Address [address] [place] [address] Care Team Providers Care Motors Assembler Name Role Phone Carlos Emmanuel Primary Care Provider [phone] Reason for Visit * Reason Comments Knee Pain Encounter Details Date Type Department Care Team (Late st Contact Info) Description 03/09/2018 8:17 AM AUXILIARY OPERATOR - 03/09/2018 11:13 AM AUXILIARY OPERATOR Emergency [facility] Emergency Department [address] [place] [phone] Knee injury, left, initial encounter (Primary Dx) Discharge Disposition: Discharge to home or self care Social History Tobacco Use Types Packs/Day Years Used Date Smoking Tobacco: Never Alcohol Use Standard Drinks/Week Comments Yes 0 (1 standard drink = 0.6 oz pur e alcohol) Sex and Gender Information Value Date Recorded Sex Assigned at Not on file Legal Sex Male 2:29 AM AUXILIARY OPERATOR Gender Identity Not on file Sexual Orientation Not on file documented as of this encounter Last Filed Vital Signs Vital Sign Reading Time Taken Comments Blood Pressure 141/99 03/09/2018 10:58 AM AUXILIARY OPERATOR Pulse 79 03/09/2018 10:58 AM AUXILIARY OPERATOR Temperature 36.6 ??C (97.9 ??F) 03/09/2018 8:23 AM CS T Respiratory Rate 20 03/09/2018 10:58 AM AUXILIARY OPERATOR Oxygen Saturation 99% 03/09/2018 10:58 AM AUXILIARY OPERATOR Inhaled Oxygen Concentration - - Weight 99.8 kg (220 lb) 03/09/2018 8:23 AM AUXILIARY OPERATOR Height 175.3 cm (5' 9 ) 03/09/2018 8:23 AM AUXILIARY OPERATOR Body Mass Index 32.49 03/09/2018 8:23 AM AUXILIARY OPERATOR documented in this encounter Discharge Instructions * Attachments The following attachments cannot be sent through Care Everywhere. * Knee Pain with Possible Torn Meniscus (Filipino) documented in this encounter Medications at Time of Discharge naproxen (NAPROSYN) 500 mg tablet Take 1 tablet (500 mg total) by mouth 2 (two) times a day with meals. 20 tablet 03/09/2018 documented as of this encounter Ordered Prescriptions Prescription Sig Dispense Quantity Refills Last Filled Start Date End Date naproxen (NAPROSYN) 500 mg tablet Take 1 tablet (500 mg total) by mouth 2 (two) times a day with meals. 20 tablet 03/09/2018 documented in this encounter Discharge Disposition Disposition Code Departure Means Destination Discharge to home or self care documented in this encounter ED Notes * Miles Smith PA - 03/09/2018 9:24 AM CST HPI Chief Complaint Patient presents with ??? Knee Pain Patient is a 53-year-old male with past medical history of left knee replacement performed by Dr. Campuzano presenting today with chief complaint of left medial knee pain that began 3 days ago after patient states he slipped on the ice and hit the medial portion of his left knee on his truck door. Patient states his pain has been increasing since injury initially occurred. He states pain is aggravated with movement of knee. Patient denies wounds knee. He denies radiation pain. He rates his current pain as an 8/10 in pain severity with an aching throbbing character. Patient denies falling to ground, hitting head, or suffering additional injuries. He denies additional symptoms or complaints. Patient History There are no active problems to display for this patient. No past medical history on file. No past surgical history on file. No family history on file. Social History Substance Use Topics ??? Smoking status: Never Smoker ??? Smokeless tobacco: Not on file ??? Alcohol use Yes Social History Social History Narrative ??? No narrative on file Review of Systems Review of Systems Constitutional: Negative for chills and fever. HENT: Negative for congestion, rhinorrhea and sore throat. Eyes: Negative. Respiratory: Negative. Negative for cough and shortness of breath. Cardiovascular: Negative. Negative for chest pain and palpitations. Gastrointestinal: Negative. Negative for abdominal pain and vomiting. Musculoskeletal: Negative for back pain. +Left knee pain Skin: Negative for color change, rash and wound. Neurological: Negative for dizziness, numbness and headaches. All other systems reviewed and are negative. Physical Exam ED Triage Vitals Temp Pulse Resp BP SpO2 03/09/18 0823 03/09/18 0823 03/09/18 0823 03/09/18 0823 03/09/18 0823 36.6 ??C (97.9 ??F) 73 18 148/100 99 % Temp src Heart Rate Source Patient Position BP Location FiO2 (%) 03/09/18 0823 03/09/18 1058 03/09/18 1058 03/09/18 1058 -- Temporal Pulse Oximetry Sitting Left arm Physical Exam Constitutional: He appears well-developed and well-nourished. No distress. HENT: Head: Normocephalic and atraumatic. Right Ear: External ear normal. Left Ear: External ear normal. Nose: Nose normal. Mouth/Throat: Oropharynx is clear and moist. No oropharyngeal exudate. Eyes: Pupils are equal, round, and reactive to light. Conjunctivae are normal. Right eye exhibits no discharge. Left eye exhibits no discharge. Neck: Normal range of motion. Neck supple. Cardiovascular: Normal rate, regular rhythm, normal heart sounds and intact distal pulses. No murmur heard. Pulmonary/Chest: Effort normal and breath sounds normal. No respiratory distress. He has no wheezes. He has no rales. Musculoskeletal: LEFT KNEE: Pain to palpation of medial portion of knee with no pain to palpation throughout knee otherwise. Decreased active range of motion with flexion of knee due to pain with movement. Pain reproduced with valgus stress test. No pain with varus stress test. Negative Gurinder's test. Negative posterior drawer test. Normal sensation throughout. Capillary refill less than 2 sec. Distal pulses intact. Normal active range of motion distal to injury. Neurological: He is alert. Skin: Skin is warm and dry. Capillary refill takes less than 2 seconds. No rash noted. No erythema.No pallor. Psychiatric: He has a normal mood and affect. Nursing note and vitals reviewed. [facility] ED Course as of Mar 09 1100 Time: 03/09 1059 Value: XR Knee Left 4 or More Views Comment: Reviewed imaging results with patient. By: MIGUEL ANGEL Champagne Time: 03/09 1059 Comment: Diagnosis and treatment plan discussed with patient. Patient instructed to follow up with orthopedist. All questions answered. Patient educated on signs/symptoms to be aware of and instructed to return to ED if these present or for new or worsening symptoms. Patient verbalized understanding. By: MIGUEL ANGEL Champagne Knee injury, left, initial encounter MIGUEL ANGEL Champagne 03/09/18 1100 Cosigned by Rodolfo Diaz MD at 03/09/2018 2:37 PM AUXILIARY OPERATOR LIARY OPERATOR LIARY OPERATOR Associated attestation - Rodolfo Diaz MD - 03/09/2018 2:37 PM AUXILIARY OPERATOR ED Attestation Based on the medical record the care appears appropriate. * Maria Antonia German RN - 03/09/2018 8:22 AM CST Fell Friday injured his left knee LIARY OPERATOR documented in this encounter Plan of Treatment Not on file documented as of this encounter Procedures Procedure Name Priority Date/Time Associated Diagnosis Comments XR KNEE LEFT 4 OR MORE VIEWS ED 03/09/2018 10:22 AM AUXILIARY OPERATOR documented in this encounter Results * XR Knee Left 4 or More Views (03/09/2018 10:22 AM AUXILIARY OPERATOR) Anatomical Region Laterality Modality Lower Extremities, Knee Left Computed Radiography 03/09/2018 10:2 6 AM AUXILIARY OPERATOR Impressions 03/09/2018 10:58 AM AUXILIARY OPERATOR NO ACUTE DISPLACED FRACTURE OR DISLOCATION. Electronically signed by: Jovon Gibson M.D. Narrative 03/09/2018 10:58 AM AUXILIARY OPERATOR XR KNEE LEFT 4 OR MORE VIEWS HISTORY: Left knee pain after falling out of a truck and striking knee on door. COMPARISON: None available. Views: 4 FINDINGS: There is no acute displaced fracture, dislocation or joint effusion. There is been an ACL repair with a screw affixed to the distal femur and there is also a 2nd surgical anchor overlying the medial femoral condyle. ??There is an ovoid midline 11 mm joint body. ??There is narrowing of the medial and patellofemoral joint spaces with minor spurring in the medial compartment reflective of osteoarthritis. Procedure Note Jovon Gibson MD - 03/09/2018 XR KNEE LEFT 4 OR MORE VIEWS HISTORY: Left knee pain after falling out of a truck and striking knee on door. COMPARISON: None available. Views: 4 FINDINGS: There is no acute displaced fracture, dislocation or joint effusion. There is been an ACL repair with a screw affixed to the distal femur and there is also a 2nd surgical anchor overlying the medial femoral condyle. There is an ovoid midline 11 mm joint body. There is narrowing of the medial and patellofemoral joint spaces with minor spurring in the medial compartment reflective of osteoarthritis. IMPRESSION: NO ACUTE DISPLACED FRACTURE OR DISLOCATION. Electronically signed by: Jovon Gibson M.D. Miles MICHELLE IMG XR PROCEDURES Final Result documented in this encounter Visit Diagnoses Diagnosis Knee injury, left, initial encounter- Primary documented in this encounter Orders Nursing Count Last Ordered Date First Orde red Date BRACE APPLICATION 1 03/09/2018 documented in this encounter Care Teams Motors Assembler Relationship Specialty Start Date End Date Carlos Emmanuel PA [address] [place] [address] PCP - General 03/09/18 documented as of this encounter
--- OUTSIDE RECORDS SUMMARY | 2024-04-18 08:33 | XMS_ITS | Encounter Summary ---
Author Organization [facility] Address [address] [place] [address] Care Team Providers Care Port Captain Name Role Phone Carlos Emmanuel Primary Care Provider [phone] Reason for Referral * Cardiology (Routine) - Authorized Specialty Diagnoses / Procedures Referred By Contac t Referred To Contact Diagnoses Palpitations Procedures MCT Mobile Cardiac Telemetry Event Monitor Hawk Medel MD [address] [place] [address] DR GASCA [address] [place] [address] Phone: tel: fax: [address] [phone] Referral ID Status Reason Start Date Expiration Date V isits Requested Visits Authorized [id number] Authorized 04/08/2024 05/08/2025 1 1 SUPERVISOR * Cardiology (Routine) - Pending Review Specialty Diagnoses / Procedures Referred By Contac t Referred To Contact Diagnoses Palpitations Procedures Transthoracic Echo (TTE) Complete W Doppler/CF Hawk Medel MD [address] [facility] [address] GASCA [address] [place] [address] Phone: tel: fax: [address] [phone] Referral ID Status Reason Start Date Expiration Date V isits Requested Visits Authorized [id number] Pending Review 04/08/2024 05/08/2025 1 1 SUPERVISOR Reason for Visit * Reason Comments Hospital Follow Up Encounter Details Date Type Department Care Team (Late st Contact Info) Description 04/08/2024 3:15 PM SEE SUPERVISOR Office Visit [place] Psychologist Developmental at [address] [place] [address] Hawk Medel MD [address] [place] [address] [address] [place] [address] Palpitations (Primary Dx) Social History Tobacco Use Types [...] on file Legal Sex Male 2:29 AM SEE SUPERVISOR Gender Identity Not on file Sexual Orientation Not on file documented as of this encounter Last Filed Vital Signs Vital Sign Reading Time Taken Comments Blood Pressure 149/83 04/08/2024 3:01 PM SEE SUPERVISOR Pulse 71 04/08/2024 3:01 PM SEE SUPERVISOR Temperature - - Respiratory Rate - - Oxygen Saturation - - Inhaled Oxygen Concentration - - Weight 98.3 kg (216 lb 11.2 oz) 04/08/2024 3:01 PM SEE SUPERVISOR Height 175.3 cm (5' 9 ) 04/08/2024 3:01 PM SEE SUPERVISOR Body Mass Index 32 04/08/2024 3:01 PM SEE SUPERVISOR documented in this encounter Progress Notes * Hawk Medel MD - 04/08/2024 3:15 PM CST Cardiology note Reason for Office Visit: Initial office visit for palpitations Chief Complaint Patient presents with Hospital Follow Up History of Present Illness: Brian Salazar is a 59 y.o. male with no cardiac history who presented to the emergency room about a month ago with palpitations. Only some PVCs noted on EKG and also on the monitor. Workup was unremarkable and he was sent home to be followed up in our office. Review of Systems: Histories: Past Medical History: Diagnosis Date Hyperlipidemia Hypertension No past surgical history on file. No family history on file. Social History Tobacco Use Smoking status: Never Smokeless tobacco: Not on file Substance and Sexual Activity Drug use: No Sexual activity: Not on file Alcohol Use: Not on file Allergies: No Known Allergies Medications: Current Outpatient Medications Medication Sig Dispense Refill amLODIPine (NORVASC) 5 mg tablet Take 1 tablet (5 mg total) by mouth daily busPIRone (BUSPAR) [...] tablet (20 mg total) by mouth daily naproxen (NAPROSYN) 500 mg tablet Take 1 tablet (500 mg total) by mouth 2 (two) times a day with meals. (Patient not taking: Reported on 04/08/2024) 20 tablet 0 No current facility-administered medications for this visit. Vital Signs: Vitals BP 149/83 (BP Location: Right leg, Patient Position: Sitting) Pulse 71 Ht 175.3 cm (5' 9 ) Wt 98.3 kg (216 lb 11.2 oz) BMI 32.00 kg/m?? Vitals: 04/08/24 1501 BP: 149/83 Pulse: 71 Wt Readings from Last 3 Encounters: 04/08/24 98.3 kg (216 lb 11.2 oz) 03/11/24 95.3 kg (210 lb) 03/18/18 99.8 kg (220 lb) Body mass index is 32 kg/m??. Physical Exam: Physical Exam Labs: No results found for: INR No results found for: PT Lab Results Component Value Date TSH 5.03 (H) 03/11/2024 Lab Results Component Value Date AST 22 03/11/2024 ALT 32 03/11/2024 ALKPHOS 48 03/11/2024 ALBUMIN 4.7 03/11/2024 Lab Results Component Value Date SODIUM 137 03/11/2024 POTASSIUM 3.7 03/11/2024 CHLORIDE 99 03/11/2024 CO2 28 03/11/2024 ANIONGAP 10 03/11/2024 No results found for: BNP Lab Results Component Value Date SODIUM 137 03/11/2024 POTASSIUM 3.7 03/11/2024 CHLORIDE 99 03/11/2024 CO2 28 03/11/2024 BUNSER 16 03/11/2024 CREATININE 1.06 03/11/2024 GFRNAA 82 03/11/2024 GLUCOSE 106 03/11/2024 CALCIUM 10.6 (H) 03/11/2024 ALBUMIN 4.7 03/11/2024 Lab Results Component Value Date SODIUM 137 03/11/2024 POTASSIUM 3.7 03/11/2024 CHLORIDE 99 03/11/2024 CO2 28 03/11/2024 ANIONGAP 10 03/11/2024 BUNSER 16 03/11/2024 CREATININE 1.06 03/11/2024 GLUCOSE 106 03/11/2024 CALCIUM 10.6 (H) 03/11/2024 BILITOT 0.3 03/11/2024 PROT 7.8 03/11/2024 ALBUMIN 4.7 03/11/2024 ALKPHOS 48 03/11/2024 ALT 32 03/11/2024 AST 22 03/11/2024 Lab Results Component Value Date WBC 8.7 03/11/2024 HGB 14.5 03/11/2024 HCT 42.4 03/11/2024 LABPLAT 450 (H) 03/11/2024 MPV 9.8 03/11/2024 RBC 4.59 03/11/2024 MCV 92.4 03/11/2024 MCH 31.6 03/11/2024 MCHC 34.2 03/11/2024 RDWCV 12.2 03/11/2024 RDWSD 41.4 03/11/2024 NRBCABS 0.00 03/11/2024 No results found for: CHOL , TRIG , HDL , LDLCALC , NONHDLCHOL , CHOLHDL Testing: Diagnoses and Plan Diagnoses and all orders for this visit: Palpitations (Primary) Assessment & Plan: Patient was seen in the emergency room in late March 10, 2024 because he felt some irregular heartbeats. Workup in the emergency room showed 3 PVCs on a 12 lead EKG--I showed him the findings on the computer. Blood test only showed a minimally elevated TSH and he has no symptoms of a low thyroid hormone. Wediscussed that he may not need thyroid replacement therapy. I checked his pulse for a total of 2 minutes. Very minimal premature beats noted. We discussed several things that could be causing this: alcohol, nicotine and caffeine/high energy drinks. He admits to drinking a cup of coffee a day. Since he has never had a playground monitor in the past, I will order a 30 day playground monitor see howmuch PVCs he really has. He does not [...] not start him on any beta-cady, etc. Orders: - Transthoracic Echo (TTE) Complete W Doppler/CF; Future - [facility] Mobile Cardiac Telemetry Event Monitor; Future Return in about 3 months (around 07/07/2024). 04/08/2024 3:25 PM Hawk Medel MD Cc:Carlos Emmanuel PA SUPERVISOR documented in this encounter Miscellaneous Notes * Assessment & Plan Note - Hawk Medel MD - 04/08/2024 3:24 PM SEE SUPERVISOR Associated Problem(s): Palpitations Patient was seen in the emergency room in late March 10, 2024 because he felt some irregular heartbeats. Workup in the emergency room showed 3 PVCs on a 12 lead EKG--I showed him the findings on the computer. Blood test only showed a minimally elevated TSH and he has no symptoms of a low thyroid hormone. Wediscussed that he may not need thyroid replacement therapy. I checked his pulse for a total of 2 minutes. Very minimal premature beats noted. We discussed several things that could be causing this: alcohol, nicotine and caffeine/high energy drinks. He admits to drinking a cup of coffee a day. Since he has never had a playground monitor in the past, I will order a 30 day playground monitor see howmuch PVCs he really has. He does not [...] not start him on any beta-cady, etc. SUPERVISOR documented in this encounter Plan of Treatment Scheduled Orders Name Type Priority Associated Diagnoses Order Schedule Transthoracic Echo (TTE) Complete W Doppler/CF Echocardiography Routine Palpitations Expected: 04/08/2024, Expires: 04/08/2025 MCT Mobile Cardiac Telemetry Event Monitor Cardiac Services Routine Palpitations Expected: 04/08/2024, Expires: 04/08/2025 documented as of this encounter Visit Diagnoses Diagnosis Palpitations- Primary documented in this encounter Care Teams Port Captain Relationship Specialty Start Date End Date Carlos Emmanuel PA [address] [place] [address] PCP - General 03/09/18 documented as of this encounter
--- OUTSIDE RECORDS SUMMARY | 2024-04-18 08:33 | XMS_ITS | Referral Summary ---
Author Organization [facility] Address [address] [place] [address] Care Team Providers Care Welt Rougher Name Role Phone Carlos Emmanuel Primary Care Provider [phone] Encounters Date Type Department Care Team Description 04/08/2024 3:15 PM GRIPS Office Visit [place] Traffic Control Signaler at [address] [place] [id number] Hawk Medel MD Palpitations (Primary Dx) 03/11/2024 10:59 PM GRIPS - 03/12/2024 1:21 AM GRIPS Emergency [facility] Emergency Department [address] [place] [address] Luiz Yeh MD PVC's (premature ventricular contractions) (Primary Dx) Discharge Disposition: Discharge to home or self care from Last 3 Months Allergies No known active allergies Medications naproxen [...] PVCs. Assessment & Plan (04/08/2024 3:24 PM GRIPS): Patient was seen in the emergency room [...] day. Since he has never had a radiographer cardiac catheterization in the past, I will order a 30 day radiographer cardiac catheterization see how much PVCs he really has. [...] not start him on any beta-cady, etc. Social History Tobacco Use Types Packs/Day Years [...] on file Legal Sex Male 2:29 AM GRIPS Gender Identity Not on file Sexual Orientation Not on file Last Filed Vital Signs Vital Sign Reading Time Taken Comments Blood Pressure 149/83 04/08/2024 3:01 PM GRIPS Pulse 71 04/08/2024 3:01 PM GRIPS Temperature 36.8 ??C (98.2 ??F) 03/11/2024 1 1:04 PM GRIPS Respiratory Rate 14 03/12/2024 1:09 AM GRIPS Oxygen Saturation 93% 03/12/2024 1:09 AM GRIPS Inhaled Oxygen Concentration - - Weight 98.3 kg (216 lb 11.2 oz) 04/08/2024 3:01 PM GRIPS Height 175.3 cm (5' 9 ) 04/08/2024 3:01 PM GRIPS Body Mass Index 32 04/08/2024 3:01 PM GRIPS Plan of Treatment Not on file Procedures Procedure Name Priority Date/Time Associated Diagnosis Comments XR CHEST 1 VIEW ED 03/11/2024 11:[address] STROKE PROTOCOL WO CONTRAST Critical/Life-T hreatening 03/11/2024 11:26 PM GRIPS POCT GLUCOSE DEVICE Routine 03/11/2024 1 1:19 PM GRIPS EGFR STAT 03/11/2024 11:11 PM GRIPS D-DIMER, QUANTITATIVE STAT 03/11/2024 11:11 PM GRIPS TSH STAT 03/11/2024 11:11 PM GRIPS LIPASE STAT 03/11/2024 11:11 PM GRIPS MAGNESIUM Routine 03/11/2024 11:11 PM GRIPS DIFFERENTIAL AUTO STAT 03/11/2024 11: 11 PM GRIPS LIPASE STAT 03/11/2024 11:11 PM GRIPS TROPONIN T HIGH-SENSITIVITY SERIES (BASELINE, 2HR, 4HR, 6HR) STAT 03/11/2024 11:11 PM GRIPS COMPREHENSIVE METABOLIC PANEL STAT 03/11/2024 11:11 PM GRIPS CBC WITH AUTO DIFFERENTIAL STAT 03/11/2024 11:11 PM GRIPS ECG 12-LEAD STAT 03/11/2024 10:58 PM GRIPS from Last 3 Months Results * XR Chest 1 Vw Portable (if patient condition/safety warrant portable) (03/11/2024 11:45 PM GRIPS) Anatomical Region Laterality Modality Body, Chest N/A Computed Radiogr aphy 03/11/2024 11:5 1 PM GRIPS Narrative 03/11/2024 11:51 PM GRIPS EXAM DESCRIPTION: XR CHEST 1 VIEW REASON [...] PM T: ??03/11/2024 11:51 PM Report ID: [id number] Reading Location: [id number] Procedure Note Jose M Corona MD - [...] M Corona M.D. AR: ROBE Report ID: [id number] Reading Location: [id number] us Luiz eYh MD IMG XR PROCEDURES Final Resu lt * CT Stroke Head WO Contrast (03/11/2024 11:26 PM GRIPS) Anatomical Region Laterality Modality Head N/A Computed Tomogra phy 03/11/2024 11:2 9 PM GRIPS Narrative 03/11/2024 11:35 PM GRIPS EXAM DESCRIPTION: CT STROKE HEAD WO CONTRAST [...] PM T: ??03/11/2024 11:35 PM Report ID: [id number] Reading Location: ??[id number] Procedure Note Jose M Corona MD - [...] M Corona M.D. AR: ROBE Report ID: [id number] Reading Location: [id number] us Luiz Yeh MD IMG CT PROCEDURES Final Resu lt * POCT glucose (03/11/2024 11:19 PM GRIPS) Glucose, POC 106 70 - 199 mg/dL Blood 03/11/2024 11:1 9 PM GRIPS 03/11/2024 11:19 PM GRIPS us Luiz Yeh MD LAB POCT ORDERABLES - DEVICE Final Result Performing Organization Address [facility] de Phone Number DONI HANSEN G[place]ON[place]) 1 [facility] [employer] [place] [address] * Troponin T high-sensitivity series (baseline, 2hr, 4hr, 6hr) (03/11/2024 11:11 PM GRIPS) Trop T hs <6 <=22 ng/L Comment: Interpretive Data For further hscTnT resources including the diagnostic algorithm and an aid in interpretation, copy and paste this link: https://nrl.testcatalog.org/show/hsTrop Current Interpretive Data last revised 2020. Blood 03/11/2024 11:1 1 PM GRIPS 03/11/2024 11:13 PM GRIPS us Luiz Yeh MD LAB BLOOD ORDERABLES Edited Result - Final Performing Organization Address [facility] Co de Phone Number DONI HANSEN ([place]) 1 [facility] [place] [address] * eGFR (03/11/2024 11:11 PM GRIPS) eGFR 82 >=60 mL/min/1. 73 m2 Comment: [...] reviewed 2021. Blood 03/11/2024 11:1 1 PM GRIPS 03/11/2024 11:13 PM GRIPS us Luiz Yeh MD LAB BLOOD ORDERABLES Final R esult DONI [facility] ([place]) 1 [facility] Department [place] [address] * (ABNORMAL) Differential, auto (03/11/2024 11:11 PM GRIPS) Neutrophil abs 4.0 1.5 - 6.5 K/cumm [...] on 2017. Blood 03/11/2024 11:1 1 PM GRIPS 03/11/2024 11:13 PM GRIPS Luiz Yeh MD LAB BLOOD ORDERABLES Final R esult [facility] ([place]) 1 [facility] Department [place] [address] * (ABNORMAL) CBC with auto differential (03/11/2024 11:11 PM GRIPS) WBC 8.7 3.8 - 9.9 K/cumm Hgb [...] CV 12.2 11.1 - 14.9 % DONI HANSEN ([place]) RDW SD 41.4 35.7 - 48.1 fL DONI HANSEN ([place]) NRBC abs 0.00 0.00 - 0.01 K/cumm DONI HANSEN ([place]) Blood (Blood, Venous) 03/11/2024 11:11 PM GRIPS 03/11/2024 11:13 PM GRIPS Luiz Yeh MD LAB BLOOD ORDERABLES Final R esult Performing Organization Address City/[facility] Co de Phone Number DONI HANSEN ([place]) 1 [facility] [place] [address] * D-dimer, quantitative (03/11/2024 11:11 PM GRIPS) D-Dimer <215 <=499 ng/mL FEU DONI HANSEN ([place]) Comment: Interpretive data FDA approved the D-dimer, [...] 68, VTE cut-off 680 ng/ml FEU. References; Schouten HT et al. Brit Med J. 2013;346:f2492. Min et al. Annals Int Med. 2015;163:701-11. Current interpretive data was last revised on 2019. Blood 03/11/2024 11:1 1 PM GRIPS 03/11/2024 11:27 PM GRIPS Luiz Yeh MD LAB BLOOD ORDERABLES Final R esult Performing Organization Address City/[facility]/ZIP Co de Phone Number DONI HANSEN ([place]) 1 [facility] [place] [address] * (ABNORMAL) TSH (03/11/2024 11:11 PM GRIPS) Thyroid Stimulating Hormone 5.03(H) 0.30 - 4.20 mcIUnit/mL Blood 03/11/2024 11:1 1 PM GRIPS 03/11/2024 11:27 PM GRIPS Luiz Yeh MD LAB BLOOD ORDERABLES Final R esult DONI HANSEN ([place]) [address] [facility] [employer] [place] [address] * Magnesium (03/11/2024 11:11 PM GRIPS) Pathologist [facility] Magnesium 2.0 1.4 - 2.5 mg/dL Blood 03/11/2024 11:1 1 PM GRIPS 03/11/2024 11:27 PM GRIPS Luiz Yeh MD LAB BLOOD ORDERABLES Final R esult Performing Organization Address City/[facility]/ZIP Co de Phone Number DONI HANSEN ([place]) [address] [facility] [place] [place] [address] * Lipase (03/11/2024 11:11 PM GRIPS) Pathologist [facility] Department Lipase 30 10 - 99 Units/L Blood 03/11/2024 11:1 1 PM GRIPS 03/11/2024 11:27 PM GRIPS Luiz Yeh MD LAB BLOOD ORDERABLES Final R esult Performing Organization Address City/[facility]/ZIP Co de Phone Number DONI [facility] ([place]) [address] [facility] [employer] [place] [address] * Lipase (03/11/2024 11:11 PM GRIPS) Lipase 29 10 - 99 Units/L Blood 03/11/2024 11:1 1 PM GRIPS 03/11/2024 11:13 PM GRIPS Luiz Yeh MD LAB BLOOD ORDERABLES Final R esult [facility] ([place]) 1 [facility] Department [place] [address] * (ABNORMAL) Comprehensive metabolic panel (03/11/2024 11:11 PM GRIPS) Sodium 137 135 - 145 mmol/L Potassium, pl 3.7 3.3 - 4.9 mmol/L [facility] ([place]) Chloride 99 97 - 110 mmol/L [facility] ([place]) CO2 28 22 - 32 mmol/L [facility] ([place]) Anion gap 10 2 - 15 mmol/L [facility] ([place]) BUN 16 6 - 25 mg/dL [facility] ([place]) Creatinine 1.06 0.80 - 1.30 [...] [facility] ([place]) Blood 03/11/2024 11:1 1 PM GRIPS 03/11/2024 11:13 PM GRIPS Luiz Yeh MD LAB BLOOD ORDERABLES Final R esult DONI HANSEN ([place]) 1 [facility] Department [place] [address] * ECG 12 lead (03/11/2024 10:58 PM GRIPS) 03/11/2024 10:5 8 PM GRIPS Narrative [facility] - 03/12/2024 8:25 AM GRIPS Vent Rate: 87 bpm RR Interval: 682 msec [place] Interval: 175 msec QRS Duration: 91 msec QT Interval: 367 msec QTC Interval: 412 msec P-R-T [place]: 35 - 72 - 22 degrees IMPRESSION: SINUS RHYTHM WITH FREQUENT VENTRICULAR PREMATURE COMPLEXES NONSPECIFIC T-WAVE ABNORMALITY ABNORMAL RHYTHM ECG Electronically Signed By: Barney Ya MD [facility] Luiz Yeh MD ECG ORDERABLES Final Result [facility] from Last 3 Months [facility] [employer] WORK[employer] COMPENSATION GENERIC Care Teams Welt Rougher Relationship Specialty Start Date End Date Carlos Emmanuel PA [address] [place] [address] PCP - General 03/09/18
--- OUTSIDE RECORDS SUMMARY | 2024-04-18 08:34 | XMS_ITS | Patient Health Record ---
Author Organization [facility] Address [address] [place], [place] [id number] Care Team Providers Care Accounting Intern Name Role Phone NEFTALY EVANS Unavailable [phone] Reason For Referral No Information Immunizations Vaccine Route Administration Date Status Comme nts Pfizer 1st Dose IM Intramuscular 07/19/2020 Administered Social History Sex Assigned At : Social History Observation Description Sex Assigned At Male Plan Of Treatment No Information Insurance Providers Payer Name Payer Address Payer Phone Subscriber Number Group Number Insured Name Patient Relationship to Insured Coverage Start Date Coverage End Date COVID19 [employer] Uninsured Testing and [employer] Fund [address] [address] [place], [place] [id number] Brian Salazar Self - patient is the insured
== END 2024-04-11 10:26 | disposition home or self-care (01) ==
PROVIDERS: Emergency Provider Nurse Practitioner Family; PCP Physician Assistant
DX: J06.9 Acute upper respiratory infection, unspecified (principal); J40 Bronchitis, not specified as acute or chronic; I10 Essential (primary) hypertension; E78.00 Pure hypercholesterolemia, unspecified
CPT/HCPCS: 71046; 99213; G0463